=== PATIENT | male | born 1985 | race Caucasian/White ===

== ENCOUNTER 2020-10-09 14:02 | Outpatient (CLI) | payer OTHER ==
--- NOTE | 2020-10-10 15:15 | Consultation ---
DATE OF CONSULTATION: 10/09/2020 CONSULTING PHYSICIAN: Satnam Granados MD CHIEF COMPLAINT: Abdominal pain, constipation. HISTORY OF PRESENT ILLNESS: This is a 35-year-old male with abdominal pain and constipation, had a CT scan that showed evidence of colonic wall thickening, so patient was referred for colonoscopy. PAST MEDICAL HISTORY: Questionable colitis. PAST SURGICAL HISTORY: None. MEDICATIONS: Please see medication reconciliation list. FAMILY HISTORY: No family history of GI malignancies. SOCIAL HISTORY: Patient denies any tobacco, alcohol, or drug abuse. ALLERGIES: No known drug allergies. REVIEW OF SYSTEMS: Positive for abdominal pain and constipation. PHYSICAL EXAMINATION: VITAL SIGNS: Temperature 97.9, weight is 136.8. HEENT: Normocephalic and atraumatic. Sclerae anicteric. NECK: Supple. No evidence of obvious lymphadenopathy. CARDIOVASCULAR: Regular rate and rhythm. Plus S1-S2. LUNGS: Clear to auscultation bilaterally. ABDOMEN: Positive bowel sounds. Soft and nontender. No rebound. No guarding. No peritoneal sign. EXTREMITIES: No cyanosis. No clubbing. No edema. ASSESSMENT AND PLAN: This is a 35-year-old male with constipation, colonic wall thickening. No obvious other cause for abdominal history based on CT. Status post antibiotic treatment with some improvement. Patient most probably will benefit with colonoscopy for evaluation of the colonic wall thickening, rule out colitis. Meanwhile, we are going to order some laboratories including CBC, CMP, ESR, and C-reactive protein. Satnam Granados M.D. DR: AMY JOB#: [id number] CC:
== END 2020-10-09 16:02 | disposition home or self-care (01) ==
LOC: PAN 14:02
DX: R10.9 Unspecified abdominal pain (principal); K59.00 Constipation, unspecified
CPT/HCPCS: G0463

== ENCOUNTER 2021-01-11 13:29 | Outpatient (CLI) | payer OTHER ==
[2021-01-11 13:56] VITALS: BP 119/76
--- NOTE | 2021-01-15 16:46 | General Progress Note ---
Subjective ROS Limited/Unobtainable: Yes Allergies: Coded Allergies: No Known Allergies (Unverified , 10/10/20) Objective General Appearance: alert EENT: normal ENT inspection Neck: supple Cardiovascular: normal rate Respiratory/Chest: lungs clear Abdomen: normal bowel sounds, non tender, soft Extremities: normal range of motion Assessment/Plan Assessment/Plan: abd pain diarrhea s/p colonoscopy no acute finding RTC prn Satnam Granados MD Jan 15, 2021 16:46
== END 2021-01-11 14:36 | disposition home or self-care (01) ==
LOC: PAN 13:29
DX: K51.90 Ulcerative colitis, unspecified, without complications (principal)
CPT/HCPCS: 99212